=== PATIENT | male | born 1990 | race Caucasian/White ===

== ENCOUNTER → 2018-02-15 13:31 | Outpatient (CLI) | payer OTHER, SELFPAY | PROVIDERS: PCP Nurse Practitioner Family; Visit Provider Nurse Practitioner Family | DX: G47.33 Obstructive sleep apnea (adult) (pediatric) (principal); G47.9 Sleep disorder, unspecified; R51 Headache; R06.83 Snoring | CPT/HCPCS: 95806 ==

== ENCOUNTER → 2018-07-27 09:28 | Outpatient (CLI) | payer OTHER, SELFPAY ==
--- NOTE | 2018-07-27 09:37 | XR_ITS ---
XR knee RT 3V HISTORY: ORDERING PHYSICIAN: Carmen Tijerina PATIENT AGE: 28 years COMPARISON: None FINDINGS: No fracture or dislocation. No lytic or blastic change. Normal mineralization. No significant arthritic changes evident. No other significant findings IMPRESSION: Negative Knee
--- NOTE | 2018-07-27 09:37 | XR_ITS ---
XR knee LT 3V HISTORY: ITS.REASON: BILAT KNEE PAIN ORDERING PHYSICIAN: Carmen Tijerina PATIENT AGE: 28 years COMPARISON: None FINDINGS: No fracture or dislocation. No lytic or blastic change. Normal mineralization. No significant arthritic changes evident. No other significant findings IMPRESSION: Negative Knee
== END ==
PROVIDERS: PCP Nurse Practitioner Family; Visit Provider Nurse Practitioner Family
DX: M25.562 Pain in left knee (principal); M25.561 Pain in right knee
CPT/HCPCS: 73562

== ENCOUNTER → 2019-04-06 18:44 | Outpatient (CLI) | payer OTHER, SELFPAY ==
--- NOTE | 2019-04-06 19:11 | XR_ITS ---
PROCEDURE: XR LUMBAR SPINE MIN 4V CLINICAL INDICATION: SPONDYLOLISTHESIS; LUMBAR REGION COMPARISON: No exams were available for comparison FINDINGS: There is normal alignment. No fracture or dislocation. No lytic or blastic change. The disc spaces are well preserved. There does appear to be a pars defect at L5 without evidence of spondylolisthesis. IMPRESSION: Suspect pars defect at L5 without evidence of spondylolisthesis. This may be confirmed with CT or MRI if clinically desired Dictated by: Shorty Jones MD 04/07/2019 06:14 Electronically signed by Shorty Jones MD in [place] 04/07/2019 06:14
== END ==
PROVIDERS: PCP Nurse Practitioner Family; Visit Provider Nurse Practitioner Family
DX: M43.16 Spondylolisthesis, lumbar region (principal)
CPT/HCPCS: 72110

== ENCOUNTER 2020-08-16 14:24 | Emergency (ER) | payer BC, SELFPAY ==
[2020-08-16 14:55] VITALS: BP 140/90; PULSE 87; RESP 19; TEMP 36.6; O2SAT 100; BMI 35.2
--- NOTE | 2020-08-16 15:19 | HMH.EDUTC ---
[facility] [place] Impression: Acute otitis media with effusion Disposition: Home, Self-Care Condition on Discharge: Good Instructions: Middle Ear Infections (Alternative Therapy), Middle Ear Infection, Amoxicillin Additional Instructions: *Monitor Temp, Over the counter Motrin or Tylenol as directed/as needed Tylenol every 4 hours and Motrin every 6 hours (as long as your family doctor has told you that you can take it) for fever or pain. and straight to ER if unable to lower temp less than 101.0 after medication given Take medication as prescribed *Sleep elevated *Humidifier/Vaporizer *Flonase 2 sprays in each nostril daily but be aware that it may take 2-3 days before you notice improvement Follow up IMMEDIATELY for new or worsening symptoms or no Noticeable improvement over the next 48-72 hours. 911 for difficulty breathing or swallowing Prescriptions: Amoxicillin [Amoxicillin 875MG Tab] 875 mg PO Q12H #20 tab Transmission Status: Pending to [facility] # Fluticasone Propionate [Flonase 50mcg nasal spray 16gm] 1 spr NS DAILY #1 bottle Transmission Status: Pending to [facility] # Referrals: Carmen Tijerina APRN [Primary Care Provider] - As needed Time of Disposition: 15:24 Medical Decision Making - Marquis Inquiry Pt receiving controlled substance: No Marquis was queried for this patient: No Vital Signs: 08/16/20 14:55 Temperature 97.9 F Temperature Source Oral Pulse Rate [Right Brachial] 87 Respiratory Rate 19 Blood Pressure [Right Arm] 140/90 Blood Pressure Mean [Right Arm] 106 Blood Pressure Source [Right Arm] Automatic Cuff Blood Pressure Position [Right Arm] Sitting 02 Sat by Pulse Oximetry 100 Oxygen Delivery Method Room Air [facility] [place] - General Stated complaint: possible Lt ear infection Time Seen by Provider: 08/16/20 15:19 Mode of Arrival: Ambulatory Source of Information: Patient Limitations: No Limitations Description of Symptoms (Recalled from Triage Doc. by RN): PATIENT C/O LEFT EAR PAIN X 2 DAYS HEENT Symptoms (Recalled from RN notes): Yes Resp Symptoms (Recalled from RN notes): No Skin Symptoms (Recalled from RN notes): No MS Symptoms (Recalled from RN notes): No Functional Status (Recalled from RN notes): WNL - History of Present Illness Provider Complaint: Patient states that he has been having pain in his left ear all week and got worse over the last 2 days States that he noticed he felt pressure then felt fluid draining from his ear States that he was feeling a little off balance also last week - Related Data Home Medications Medication Instructions Recorded Confirmed Ibuprofen [Ibuprofen 800mg 800 mg PO TIDP PRN 08/16/20 08/16/20 Tablet] Omeprazole [Omeprazole 40mg 40 mg PO DAILY 08/16/20 08/16/20 Capsule] methocarbamoL [Methocarbamol] 750 mg PO TID 08/16/20 08/16/20 Previous Rx's Medication Instructions Recorded Amoxicillin [Amoxicillin 875MG 875 mg PO Q12H #20 tab 08/16/20 Tab] Fluticasone Propionate [Flonase 1 spr NS DAILY #1 bottle 08/16/20 50mcg nasal spray 16gm] Allergies Allergy/AdvReac Type Severity Reaction Status Date / Time No Known Allergies Allergy Verified 08/16/20 15:11 - Worker's Comp Is this a Worker's Comp case?: No [facility] History - Hepatitis A Screen Drug use history?: No High risk sexual behaviors?: No History of sexually transmitted infection?: No Currently employed?: No Childcare worker?: No Do you have indoor plumbing?: Yes Do you have electricity?: Yes Attestation statement:: This patient has been screened for Hepatitis A risk factors. I have reviewed the patient's past medical history: Yes - Social History Smoking Status: Never smoker Alcohol Intake: never Occupational Status: other ROS Obtained: Yes All systems reviewed & no additional complaints, Yes Systems reviewed as appropriate & no additional complaints - Constitutional Constitutional: R
[2020-08-16 15:24] VITALS: BP 140/90; PULSE 87; RESP 19; TEMP 36.6; O2SAT 100
== END 2020-08-16 15:27 | disposition home or self-care (01) ==
PROVIDERS: Emergency Provider Nurse Practitioner; PCP Nurse Practitioner Family
DX: H66.002 Acute suppurative otitis media without spontaneous rupture of ear drum, left ear (principal)
CPT/HCPCS: 99202; G0463

== ENCOUNTER → 2021-05-11 08:04 | Outpatient (CLI) | payer BC, SELFPAY ==
--- NOTE | 2021-05-11 08:09 | US_ITS ---
FINAL REPORT CLINICAL HISTORY: ELEVATED FERNITIN FINDINGS: ABDOMINAL ULTRASOUND COMPLETE: TECHNIQUE: Ultrasound images of the abdomen were obtained. FINDINGS: The liver is unremarkable. There is a trace amount of sludge in the gallbladder. The common duct is normal. The right kidney measures 9.5 cm in length and is normal in echogenicity without hydronephrosis. The left kidney measures 13.7 cm in length and is normal in echogenicity without hydronephrosis. The spleen is at the upper limits of normal at 13 cm. The aorta is normal in caliber. The vena cava is unremarkable. IMPRESSION: Borderline enlarged spleen at 13 cm. Trace sludge in the gallbladder. Reviewed, Interpreted and Dictated by Chacorta Freeman MD Transcribed by Lamonte Clark Authenticated by Chacorta Freeman MD on 05/11/2021 12:18:15 PM [facility]
== END ==
PROVIDERS: PCP Nurse Practitioner Family; Visit Provider Nurse Practitioner Family
DX: R79.89 Other specified abnormal findings of blood chemistry (principal)
CPT/HCPCS: 76700

== ENCOUNTER → 2023-01-10 11:00 | Outpatient (CLI) | payer BC, SELFPAY ==
[2023-01-10 17:57] LABS: Basophils % 0.7 % (0.1-2.0); Eosinophils # 0.2 K/mm3 (0.0-0.4); Eosinophils % 2.4 % (0.1-12.0); Hematocrit 46.6 % (42.0-52.0); Hemoglobin 15.9 g/dL (14.1-18.0); Lymphocytes # 1.8 K/mm3 (0.7-4.5); Lymphocytes % 27.6 % (10-50); Mean Corpuscular Hemoglobin 31.3 pg (27.0-31.2); Mean Corpuscular Volume 91.9 fl (80-94); Monocytes # 0.4 K/mm3 (0.1-1.0); Monocytes % 5.2 % (1.7-9.3); Neutrophils # 4.3 K/mm3 (1.8-7.8); Neutrophils % 64.1 % (37.0-80.0); Platelet Count 198 K/mm3 (142-424); Red Blood Count 5.06 M/mm3 (4.60-6.20); Red Cell Distribution Width 13.3 % (11.5-17.5); White Blood Count 6.6 K/mm3 (4.8-10.8)
[2023-01-10 18:25] LABS: Chloride 106 mmol/L (98-107)
[2023-01-10 18:26] LABS: Potassium 4.1 mmoL/L (3.5-5.1); Sodium 140 mmol/L (136-145)
[2023-01-10 18:28] LABS: Alanine Aminotransferase 48 U/L (12-78); Aspartate Amino Transferase 35 U/L (17-59); Blood Urea Nitrogen 23 mg/dl (9-20); Estimated Glomerular Filt Rate 86 ml/min (>60); GFR (African American) 103 ML/MIN (>60)
[2023-01-10 18:29] LABS: Albumin Level 4.2 g/dl (3.5-5.0); Albumin/Globulin Ratio 1.7 (1.1-1.8); Alkaline Phosphatase 56 U/L (38-126); Anion Gap 14.1 mEq/L (5-15); Bilirubin,Total 0.5 mg/dl (0.2-1.3); Calcium 8.3 mg/dl (8.4-10.2); Carbon Dioxide 24 mmol/L (22.0-30.0); Globulin 2.5 g/dL (1.3-3.2); Glucose 93 mg/dl (74-100); Total Protein,Serum 6.7 g/dl (6.3-8.2)
[2023-01-10 19:04] LABS: Ferritin 536 ng/ml (17.9-464)
== END ==
PROVIDERS: PCP Nurse Practitioner Family; Visit Provider Nurse Practitioner Family
DX: E83.119 Hemochromatosis, unspecified (principal); R74.8 Abnormal levels of other serum enzymes
CPT/HCPCS: 80053; 82728; 85025

== ENCOUNTER 2023-10-17 09:44 | Outpatient (CLI) | payer BC, SELFPAY ==
[2023-10-17 10:25] VITALS: PULSE 84; PULSE 86
[2023-10-17] MEDS: ALBUTEROL 0.083% 2.5 MG/3 ML NEB IH (10:25)
== END 2023-10-17 23:59 | disposition home or self-care (01) ==
LOC: RT 09:45
PROVIDERS: PCP Nurse Practitioner Family; Visit Provider Nurse Practitioner Family
DX: R06.2 Wheezing (principal); R06.09 Other forms of dyspnea
CPT/HCPCS: 94060; J7613

== ENCOUNTER 2024-06-20 13:30 | Outpatient (CLI) | payer BC, SELFPAY ==
[2024-06-20 21:44] LABS: Basophils # 0.1 K/mm3 (0-0.2); Basophils % 1.3 % (0.1-2.0); Eosinophils # 0.3 K/mm3 (0.0-0.4); Eosinophils % 6.3 % (0.1-12.0); Hematocrit 43.5 % (42.0-52.0); Hemoglobin 15.5 g/dL (14.1-18.0); Lymphocytes # 1.8 K/mm3 (0.7-4.5); Lymphocytes % 33.9 % (10-50); Mean Corpuscular HGB Conc 35.6 g/dL (31.8-35.4); Mean Corpuscular Hemoglobin 31.7 pg (27.0-31.2); Mean Platelet Volume 10.9 fl (7.4-10.4); Monocytes # 0.5 K/mm3 (0.1-1.0); Monocytes % 8.7 % (1.7-9.3); Neutrophils # 2.7 K/mm3 (1.8-7.8); Neutrophils % 49.4 % (37.0-80.0); Platelet Count 203 K/mm3 (142-424); Red Blood Count 4.89 M/mm3 (4.60-6.20); Red Cell Distribution Width 11.9 % (11.5-17.5); White Blood Count 5.4 K/mm3 (4.8-10.8)
[2024-06-21 01:11] LABS: Albumin Level 4.7 g/dl (3.5-5.0); Chloride 102 mmol/L (98-107); Potassium 3.9 mmoL/L (3.5-5.1); Sodium 136 mmol/L (136-145)
[2024-06-21 01:13] LABS: Alanine Aminotransferase 35 U/L (12-78); Aspartate Amino Transferase 34 U/L (17-59); Blood Urea Nitrogen 20 mg/dl (9-20); Estimated Glomerular Filt Rate 85 ml/min (>60); GFR (African American) 102 ML/MIN (>60)
[2024-06-21 01:14] LABS: Albumin/Globulin Ratio 2.5 (1.1-1.8); Alkaline Phosphatase 47 U/L (38-126); Anion Gap 14.9 mEq/L (5-15); Bilirubin,Total 0.9 mg/dl (0.2-1.3); Carbon Dioxide 23 mmol/L (22.0-30.0); Chol/HDL Ratio 5.5 (1-3.5); Cholesterol 236 mg/dl (140-200); Globulin 1.9 g/dL (1.3-3.2); Glucose 70 mg/dl (74-100); HDL Cholesterol 43 mg/dl (40-60); Total Protein,Serum 6.6 g/dl (6.3-8.2); Triglycerides 162 mg/dl (30-150); VLDL Cholesterol 32 mg/dL (0-40)
[2024-06-21 01:25] LABS: Direct LDL Cholesterol 151.83 mg/dL (100-129)
[2024-06-21 01:49] LABS: Ferritin 360 ng/ml (17.9-464)
== END 2024-06-20 23:59 | disposition home or self-care (01) ==
LOC: LAB.DROPOF 06-21 09:52
PROVIDERS: PCP Nurse Practitioner Family; Visit Provider Nurse Practitioner Family
DX: R74.8 Abnormal levels of other serum enzymes (principal); I10 Essential (primary) hypertension; E83.119 Hemochromatosis, unspecified; F17.200 Nicotine dependence, unspecified, uncomplicated
CPT/HCPCS: 80053; 80061; 82728; 85025

== ENCOUNTER 2025-01-03 15:09 | Outpatient (CLI) | payer BC, SELFPAY ==
--- OUTSIDE RECORDS SUMMARY | 2025-01-03 15:11 | XMS_ITS | Clinical Summary ---
Author Organization [facility] Address [address] [place] [id number] Phone [email or web address] 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 Role Phone Unavailable Primary Care Provider Unavailabl e Medications No known medications Active Problems Problem Noted Date Diagnosed Date Encounter for drug screening 05/07/2020 Social History Tobacco Use Types Packs/Day Years Used Date Smoking Tobacco: Never Assessed Intimate Partner Violence Answer Date R ecorded Insults You Not on file 08/01/2020 Threatens You Not on file 08/01/2020 Screams at You Not on file 08/01/2020 Physically Hurt Not on file 08/01/2020 Intimate Partner Violence Score Not on file 08/01/2020 Stress Answer Date Recorded Stress in your Life Not on file 02/22/2024 Dealing with Stress 3 02/22/2024 Sex and Gender Information Value Date Recorded Sex Assigned at Male 08/16/2024 4:21 PM CDT Legal Sex Male 10:09 AM [employer] Gender Identity Not on file Sexual Orientation Not on file Last Filed Vital Signs Vital Sign Reading Time Taken Comments Blood Pressure 131/89 05/17/2022 9:36 PM EST Pulse 75 05/17/2022 9:36 PM EST Temperature 36.4 C (97.5 F) 05/17/2022 9:36 PM EST Respiratory Rate 16 05/17/2022 9:36 PM EST Oxygen Saturation 97% 05/17/2022 9:36 PM EST Inhaled Oxygen Concentration - - Weight 110 kg (242 lb 6.4 oz) 05/17/2022 9:36 PM EST Height 181.9 cm (5' 11.6 ) 05/17/2022 9:36 PM ES T Body Mass Index 33.24 05/17/2022 9:36 PM EST Plan of Treatment Health Maintenance Due Date Last Done Comments Dental Cleaning/Exam 1988 HIV Screening 1988 Hepatitis C Screening 1988 HPV Immunization (1 - Male 3-dose series) 2003 Hep B Infection Screening - Triple Screen 2006 Hepatitis B Immunization (1 of 3 - 19+ 3-dose series) 2007 Annual Preventive Exam 04/03/2020 04/03/2019 Covid-19 Immunization (2 - 2024- season) 2024 10/03/2020 Influenza Immunization (#1) 2024 Tetanus Diphtheria and Pertussis Immunization (4 - Td or Tdap) 10/07/2026 10/07/2016, 12/15/2006, 03/21/2003 HIB Immunization Aged Out No longer e ligible based on patient's age to complete this topic Hepatitis A Immunization Aged Out No longer eligible based on patient's age to complete this topic Pneumococcal: Ped (0 to 5 Yrs) and At-Risk Member (6 to 64 Yrs) Aged Out No longer eligible b ased on patient's age to complete this topic Polio Immunization Aged Out No longer eligible based on patient's age to complete this topic Varicella Immunization Aged Out No lo nger eligible based on patient's age to complete this topic Insurance OPT OUT NO COPAY NB
[2025-01-03 15:56] LABS: Hematocrit 40.7 % (42.0-52.0); Hemoglobin 15.2 g/dL (14.1-18.0); Immature Granulocytes % 0.7 %; Mean Corpuscular HGB Conc 37.3 g/dL (31.8-35.4); Mean Corpuscular Hemoglobin 32.4 pg (27.0-31.2); Mean Corpuscular Volume 86.8 fl (80-94); Nucleated Red Blood Cells % 0 %; Platelet Count 163 K/mm3 (142-424); Red Blood Count 4.69 M/mm3 (4.60-6.20); Red Cell Distribution Width-SD 37.6 fL; White Blood Count 5.6 K/mm3 (4.8-10.8)
[2025-01-03 16:47] LABS: Alanine Aminotransferase 58 U/L (12-78); Albumin Level 4.2 g/dl (3.5-5.0); Albumin/Globulin Ratio 1.8 (1.1-1.8); Alkaline Phosphatase 57 U/L (38-126); Anion Gap 13.2 mEq/L (5-15); Aspartate Amino Transferase 43 U/L (17-59); Bilirubin,Total 0.8 mg/dl (0.2-1.3); Blood Urea Nitrogen 13 mg/dl (9-20); Calcium 9.0 mg/dl (8.4-10.2); Carbon Dioxide 23 mmol/L (22.0-30.0); Chloride 102 mmol/L (98-107); Creatinine,Serum 0.80 mg/dl (0.66-1.25); Estimated Glomerular Filt Rate 109 ml/min (>60); GFR (African American) 132 ML/MIN (>60); Globulin 2.4 g/dL (1.3-3.2); Glucose 96 mg/dl (74-100); Magnesium 1.6 mg/dl (1.6-2.3); Potassium 4.2 mmoL/L (3.5-5.1); Sodium 134 mmol/L (136-145); Total Protein,Serum 6.6 g/dl (6.3-8.2)
[2025-01-03 17:02] LABS: 25-OH Vitamin D, Total 17.3 ng/mL (30-100)
[2025-01-03 17:16] LABS: Thyroid Stimulating Hormone 2.16 uIU/mL (0.465-4.68)
[2025-01-03 17:48] LABS: Ferritin 427 ng/ml (17.9-464)
== END 2025-01-03 23:59 | disposition home or self-care (01) ==
LOC: LAB 15:09
PROVIDERS: PCP Nurse Practitioner Family; Visit Provider Nurse Practitioner Family
DX: F32.A Depression, unspecified (principal); R74.8 Abnormal levels of other serum enzymes; I10 Essential (primary) hypertension; E83.119 Hemochromatosis, unspecified; R25.2 Cramp and spasm
CPT/HCPCS: 36415; 80053; 82306; 82728; 83735; 84207; 84425; 84443; 85025